=== PATIENT | male | born 1965 | race African-American/Black ===

== ENCOUNTER 2018-04-16 19:01 | Inpatient (IN) | payer SELFPAY ==
[2018-04-16 19:08] VITALS: BMI 38.0
--- NOTE | 2018-04-16 21:27 | HP ---
CIWA Score - CIWA Score Nausea/Vomitin-Int. Nausea w/Dry Heave Anxiety: 3 Agitation: 1-Slight > Activity Paroxysmal Sweats: 3 Orientation: 1-Uncertain about Date (no distress) Tacttile Disturbances: 0-None Admission ROS S - HPI Chief Complaint: " I was clean for 15 years, I relapsed last week after my father , I feel funny. " Allergies/Adverse Reactions: Allergies Allergy/AdvReac Type Severity Reaction Status Date / Time No Known Allergies Allergy Verified 04/16/18 21:37 History of Present Illness: 52 yo male with hx of nicotine, alcohol, marijuana and cocaine dependence is here seeking detox for the first time. PMHX: HTN ( non- adherence with meds), depression. Denies suicidal / homicidal ideation or hx of suicide attempts. Denies hx of seizures or blackouts. Longest period of sobriety 15 years. Exam Limitations: No Limitations - Ebola screening Have you traveled outside of the country in the last 21 days: No Have you had contact with anyone from an Ebola affected area: No Have you been sick,other than usual withdrawal symptoms: No Do you have a fever: No - Review of Systems Constitutional: Chills, Diaphoresis, Changes in sleep EENT: reports: No Symptoms Reported Respiratory: reports: No Symptoms reported Cardiac: reports: No Symptoms Reported GI: reports: Constipated (last BM x 3 days), Nausea, Poor Fluid Intake, Vomiting : reports: No Symptoms Reported Musculoskeletal: reports: No Symptoms Reported Integumentary: reports: No Symptoms Reported Neuro: reports: No Symptoms reported Endocrine: reports: Increased Thirst Hematology: reports: No Symptoms Reported Psychiatric: reports: Orientated x3, Depressed Other Systems: Reviewed and Negative Patient History - Patient Medical History Hx Anemia: No Hx Asthma: No Hx Chronic Obstructive Pulmonary Disease (COPD): No Hx Cancer: No Hx Cardiac Disorders: No Hx Congestive Heart Failure: No Hx Hypertension: Yes (non- adherence with meds ) Hx Hypercholesterolemia: No Hx Pacemaker: No HX Cerebrovascular Accident: No Hx Seizures: No Hx Dementia: No Hx Diabetes: No Hx Gastrointestinal Disorders: Yes (GERD ) Hx Liver Disease: No Hx Genitourinary Disorders: No Hx Sexually Transmitted Disorders: Yes (gonorrhea and treated ) Hx Renal Disease (ESRD): No Hx Thyroid Disease: No Hx Human Immunodeficiency Virus (HIV): No (last tested two wee) Hx Hepatitis C: No Hx Depression: Yes Hx Suicide Attempt: No Hx Bipolar Disorder: No Hx Schizophrenia: No - Patient Surgical History Past Surgical History: Yes Hx Neurologic Surgery: No Hx Cataract Extraction: No Hx Cardiac Surgery: No Hx Lung Surgery: No Hx Breast Surgery: No Hx Breast Biopsy: No Hx Abdominal Surgery: Yes (hernia repair x 2017) Hx Appendectomy: No Hx Cholecystectomy: No Hx Genitourinary Surgery: No Hx Orthopedic Surgery: No Hx Hysterectomy: No - PPD History Previous Implant?: No Documented Results: Negative w/o proof Implanted On Prior R Admission?: No PPD to be Administered?: Yes - Smoking Cessation Smoking history: Current every day smoker Have you smoked in the past 12 months: Yes Aproximately how many cigarettes per day: 10 Hx Chewing Tobacco Use: No Initiated information on smoking cessation: Yes 'Breaking Loose' booklet given: 04/16/18 - Substance & Tx. History Hx Alcohol Use: Yes Hx Substance Use: Yes Substance Use Type: Alcohol, Cocaine, Marijuana Hx Substance Use Treatment: No - Substances Abused Alcohol Route: Oral Frequency: Daily Amount used: 10 x 40 oz Age of first use: 20 Date of Last Use: 04/16/18 Cocaine Route: Inhalation Frequency: Daily Amount used: 1 gram Age of first use: 52 Date of Last Use: 04/16/18 Marijuana/Hashish Route: Smoking Frequency: Daily Amount used: 1 blunt Age of first use: 52 Date of Last Use: 04/16/18 Family Disease History - Family Disease History Family Disease History: Other: Father (, MVA ), Mother (, Cancer ) Admission Physical Exam S - Vital Signs Vital Signs: Vital Signs - 24 hr 04/16/18 19:06 Temperature 97.9 F Pulse Rate 99 H Respiratory 18 Rate Blood Pressure 160/100 - Physical General Appearance: Yes: Disheveled, Mild Distress, Obese, Sweating, Anxious HEENTM: Yes: EOMI, Hearing grossly Normal, Normal ENT Inspection, Normocephalic , Normal Voice, JASE, Pharynx Normal, Tm's normal Respiratory: Yes: Within Normal Limits Neck: Yes: No masses,lesions,Nodules, Trachea in good position Breast: Yes: Breast Exam Deferred Cardiology: Yes: Regular Rhythm, Regular Rate Abdominal: Yes: Normal Bowel Sounds, Non Tender, Soft, Protuberent Genitourinary: Yes: Within Normal Limits Back: Yes: Normal Inspection Musculoskeletal: Yes: full range of Motion, Gait Steady, Pelvis Stable Extremities: Yes: Normal Capillary Refill, Normal Inspection, Normal Range of Motion, Non-Tender 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, Fully Oriented, Alert, Motor Strength 5/5, Depressed Affect Integumentary: Yes: Normal Color, Warm, Diaphoresis Lymphatic: Yes: Within Normal Limits - Diagnostic (1) Essential hypertension Current Visit: Yes Status: Chronic (2) Elevated blood pressure reading in office with diagnosis of hypertension Current Visit: Yes Status: Acute (3) Alcohol dependence with withdrawal Current Visit: Yes Status: Acute Qualifiers: Complication of substance-induced condition: uncomplicated Qualified Code(s ): F10.230 - Alcohol dependence with withdrawal, uncomplicated (4) Cocaine abuse Current Visit: Yes Status: Acute (5) Marijuana abuse Current Visit: Yes Status: Acute (6) Obesity (BMI 30-39.9) Current Visit: Yes Status: Chronic Comment: BMI 38.0 Cleared for Admission [facility] - Detox or Rehab [facility] Level of Care: Medically Managed Detox Regimen/Protocol: Librium [facility] Breath Alcohol Content Breath Alcohol Content: 0 Urine Drug Screen - Results Drug Screen Negative: No Urine Drug Screen Results: THC-Marijuana, BRIAN-Cocaine
[2018-04-16] MEDS ORDERED: guaiFENesin/D-METHORPHAN HB 10 ML UNIT-DOSE CUPS PO PRN (21:48)
[2018-04-16] MEDS ORDERED: MENTHOL/PHENOL 1 EACH UD MM PRN (21:48)
[2018-04-16] MEDS ORDERED: chlordiazePOXIDE HCL 25 MG CAPSULE PO PRN (21:48)
[2018-04-16] MEDS ORDERED: MAG HYDROX/AL HYDROX/SIMETH 30 ML UNIT-DOSE CUP PO PRN (21:48)
[2018-04-16] MEDS ORDERED: MAGNESIUM CITRATE 300 ML BOTTLE PO PRN (21:48)
[2018-04-16] MEDS ORDERED: ACETAMINOPHEN 325 MG TABLET (FP) PO PRN (21:48)
[2018-04-16] MEDS ORDERED: LOPERAMIDE HCL 2 MG CAPSULE PO PRN (21:48)
[2018-04-16] MEDS ORDERED: P-EPHED 60MG/TRIPROLIDI 2.5MG TABLET PO PRN (21:48)
[2018-04-16] MEDS ORDERED: hydrOXYzine PAMOATE 50 MG CAPSULE (FP) PO PRN (21:48)
[2018-04-16] MEDS ORDERED: NICOTINE POLACRILEX 2 MG GUM BC PRN (21:48)
[2018-04-16] MEDS ORDERED: IBUPROFEN 400 MG TABLET (FP) PO PRN (21:48)
[2018-04-16] MEDS ORDERED: MAGNESIUM HYDROX 2400MG/30ML ORAL SUSPENSION 30 ML CUP PO PRN (21:48)
[2018-04-16] MEDS ORDERED: MELATONIN 5 MG TABLETS PO PRN (22:00)
--- NOTE | 2018-04-16 22:44 | PN ---
[facility] CIWA - CIWA Score Nausea/Vomitin Muscle Tremors: 2 Anxiety: 3 Agitation: 3 Paroxysmal Sweats: 2 Orientation: 1-Uncertain about Date Tacttile Disturbances: 0-None Auditory Disturbances: 0-None Visual Disturbances: 0-None Headache: 2-Mild CIWA-Ar Total Score: 16
[2018-04-16] MEDS: THIAMINE HCL 100 MG TABLET (FP) PO SCH (23:51)
[2018-04-16] MEDS: amLODIPine BESYLATE 10 MG TABLET (FP) PO SCH (23:51)
[2018-04-16] MEDS: chlordiazePOXIDE HCL 25 MG CAPSULE PO SCH (23:51)
[2018-04-17] MEDS: chlordiazePOXIDE HCL 25 MG CAPSULE PO SCH ×4 (06:36→22:38)
[2018-04-17] MEDS ORDERED: cloNIDine HCL 0.1 MG TABLET PO ONE (06:45)
--- NOTE | 2018-04-17 09:30 | CONSULT ---
[facility] Psychiatric Consult - Data Date of interview: 04/17/18 Admission source: [facility] Identifying data: Patient is a 52 year old male, father of three, domiciled and currently employed. This is patient's first admission to detox at [facility]. Patient admitted to for alcohol, marijuana, and cocaine dependence. Substance Abuse History: Smoking Cessation. Smoking history: Current every day smoker. Have you smoked in the past 12 months: Yes. Aproximately how many cigarettes per day: 10. Hx Chewing Tobacco Use: No. Initiated information on smoking cessation: Yes. 'Breaking Loose' booklet given: 04/16/18. - Substance & Tx. History. Hx Alcohol Use: Yes. Hx Substance Use: Yes. Substance Use Type : Alcohol, Cocaine, Marijuana. Hx Substance Use Treatment: No. - Substances Abused. Alcohol. Route: Oral. Frequency: Daily. Amount used: 10 x 40 oz. Age of first use: 20. Date of Last Use: 04/16/18. Cocaine. Route: Inhalation. Frequency: Daily. Amount used: 1 gram. Age of first use: 52. Date of Last Use: 04/16/18. Marijuana/Hashish. Route: Smoking. Frequency: Daily. Amount used: 1 blunt. Age of first use: 52. Date of Last Use: 04/16/18 Medical History: hernia repair x 2017, hypertension, GERD Psychiatric History: Patient denies h/o psychiatric hospitalization, outpatient care, and suicide attempt. Pt. reports poor sleep. Physical/Sexual Abuse/Trauma History: Denies. Mental Status Exam - Mental Status Exam Alert and Oriented to: Time, Place, Person Cognitive Function: Good Patient Appearance: Well Groomed Mood: Euthymic Affect: Mood Congruent Patient Behavior: Appropriate, Cooperative Speech Pattern: Appropriate Voice Loudness: Normal Thought Process: Intact, Goal Oriented Thought Disorder: Present Hallucinations: Denies Suicidal Ideation: Denies Homicidal Ideation: Denies Insight/Judgement: Poor Sleep: Poorly Appetite: Fair Muscle strength/Tone: Normal Gait/Station: Normal Psychiatric Findings - Problem List ([place] 1, 2,3) (1) Cocaine dependence Current Visit: Yes Status: Acute (2) Alcohol dependence with withdrawal Current Visit: Yes Status: Acute Qualifiers: Complication of substance-induced condition: uncomplicated Qualified Code(s ): F10.230 - Alcohol dependence with withdrawal, uncomplicated (3) Essential hypertension Current Visit: Yes Status: Chronic (4) Obesity (BMI 30-39.9) Current Visit: Yes Status: Chronic Comment: BMI 38.0 (5) Cannabis dependence Current Visit: Yes Status: Acute (6) Insomnia Current Visit: Yes Status: Acute - Initial Treatment Plan Initial Treatment Plan: Psychoeducation provided. Detoxification in progress. Melatonin 5mg ordered by PURCHASING INTERN. Pt encouraged to accept melatonin 5mg for insomnia.
[2018-04-17 10:05] LABS: HEMATOCRIT 43.6 % (35.4-49); HEMOGLOBIN 14.3 GM/dL (11.7-16.9); MCH 29.7 pg (25.7-33.7); MCHC 32.8 g/dl (32.0-35.9); MEAN CELL VOLUME 90.5 fl (80-96); MEAN PLT VOLUME 8.1 fl (7.5-11.1); PLATELET COUNT 275 K/MM3 (134-434); RBC 4.82 M/mm3 (4.00-5.60); RDW 13.3 % (11.9-15.9); WHITE BLOOD COUNT 7.4 K/mm3 (4.0-10.0)
[2018-04-17 10:29] LABS: ALBUMIN 3.3 g/dl (3.4-5.0); ALK PHOS 85 U/L (45-117); ANION GAP 8 (8-16); BILIRUBIN,TOTAL 0.3 mg/dL (0.2-1.0); BLOOD UREA NITROGEN 16 mg/dL (7-18); CALCIUM 8.5 mg/dL (8.5-10.1); CHLORIDE 107 mmol/L (98-107); CO2 28 mmol/L (21-32); CREATININE 1.2 mg/dL (0.7-1.3); GLUCOSE,RANDOM 158 mg/dL (74-106); SGOT/AST 16 U/L (15-37); SGPT/ALT 27 U/L (12-78); SODIUM 143 mmol/L (136-145); TOT PROT 6.7 g/dl (6.4-8.2)
--- NOTE | 2018-04-17 10:36 | PN ---
[facility] CIWA - CIWA Score Nausea/Vomitin-No Nausea/No Vomiting Muscle Tremors: 4-Moderate,w/Arms Extend Anxiety: 4-Mod. Anxious/Guarded Agitation: 4-Moderately Restless Paroxysmal Sweats: 1-Minimal Palms Moist Orientation: 0-Oriented Tacttile Disturbances: 0-None Auditory Disturbances: 0-None Visual Disturbances: 0-None Headache: 0-None Present CIWA-Ar Total Score: 13 S Progress Note (SOAP) Subjective: ANXIETY,TREMORS,SWEATS.INTERMITTENT Objective: 04/17/18 10:36 Vital Signs 04/17/18 04/17/18 04/17/18 03:25 06:14 09:34 Temperature 97.6 F 97.3 F L Pulse Rate 18 L 78 Respiratory 20 71 H 18 Rate Blood Pressure 153/100 151/89 Laboratory Tests 04/17/18 07:00 WBC 7.4 RBC 4.82 Hgb 14.3 Hct 43.6 MCV 90.5 MCH 29.7 MCHC 32.8 RDW 13.3 Plt Count 275 MPV 8.1 OTHER LABS PENDING Assessment: 04/17/18 10:36 WITHDRAWAL SX Plan: CONTINUE DETOX ON NORVASC 10 MG PO DAILY
[2018-04-17] MEDS: PRENATAL VITAMINS W/ FOLIC ACID TABLET (FP) PO SCH (10:40)
[2018-04-17] MEDS: NICOTINE 14 MG/24 HOURS TOPICAL PATCH TD SCH (10:40)
[2018-04-17] MEDS: amLODIPine BESYLATE 10 MG TABLET (FP) PO SCH (10:41)
[2018-04-17 10:51] LABS: URINE APPEARANCE CLEAR; URINE BILIRUBIN NEGATIVE (<2.0 mg/dL); URINE COLOR STRAW; URINE GLUCOSE (UA) NEGATIVE (NEGATIVE); URINE KETONE NEGATIVE (NEGATIVE); URINE NITRITE NEGATIVE (NEGATIVE); URINE PROTEIN NEGATIVE (NEGATIVE); URINE UROBILINOGEN NEGATIVE mg/dL (0.2-1.0)
[2018-04-17 11:06] LABS: URINE LEUK ESTERASE 1+ (NEGATIVE)
[2018-04-17 11:42] LABS: EPI CELLS RARE /HPF (FEW); URINE MUCUS RARE
--- NOTE | 2018-04-17 12:10 | EKG ---
Test Reason : Blood Pressure : / mmHG Vent. Rate : 084 BPM Atrial Rate : 084 BPM P-R Int : 186 ms QRS Dur : 084 ms QT Int : 362 ms P-R-T Axes : 052 018 046 degrees QTc Int : 427 ms NORMAL SINUS RHYTHM POSSIBLE LEFT ATRIAL ENLARGEMENT NONSPECIFIC T WAVE ABNORMALITY ABNORMAL ECG NO PREVIOUS ECGS AVAILABLE Confirmed by WILL ROSAS MD ([id number]) on 04/17/2018 12:10:41 PM Referred By: Confirmed By:WILL ROSAS MD
--- NOTE | 2018-04-17 12:10 | EKG ---
Test Reason : Blood Pressure : / mmHG Vent. Rate : 064 BPM Atrial Rate : 064 BPM P-R Int : 162 ms QRS Dur : 090 ms QT Int : 496 ms P-R-T Axes : -04 055 021 degrees QTc Int : 511 ms NORMAL SINUS RHYTHM PROLONGED QT ABNORMAL ECG WHEN COMPARED WITH ECG OF 16-APR-2018 23:31, T WAVE INVERSION NOW EVIDENT IN ANTERIOR LEADS NONSPECIFIC T WAVE ABNORMALITY NO LONGER EVIDENT IN LATERAL LEADS QT HAS LENGTHENED Confirmed by WILL ROSAS MD ([id number]) on 04/17/2018 12:10:32 PM Referred By: Confirmed By:WILL ROSAS MD
[2018-04-17] MEDS: THIAMINE HCL 100 MG TABLET (FP) PO SCH (22:38)
[2018-04-17] MEDS: CLOTRIMAZOLE 1%TOPICAL SOLUTION 30 ML BOTTLE TP SCH (22:38)
[2018-04-18] MEDS: chlordiazePOXIDE HCL 25 MG CAPSULE PO SCH ×3 (06:57→17:59)
[2018-04-18] MEDS: PRENATAL VITAMINS W/ FOLIC ACID TABLET (FP) PO SCH (10:36)
[2018-04-18] MEDS: amLODIPine BESYLATE 10 MG TABLET (FP) PO SCH (10:36)
[2018-04-18] MEDS: CLOTRIMAZOLE 1%TOPICAL SOLUTION 30 ML BOTTLE TP SCH ×2 (10:36→22:27)
[2018-04-18] MEDS: NICOTINE 14 MG/24 HOURS TOPICAL PATCH TD SCH (10:36)
[2018-04-18] MEDS ORDERED: CHLORHEXIDINE GLUCONATE 0.12% 15ML CUP MM ONE (12:08)
[2018-04-18] MEDS ORDERED: predniSONE 20 MG TABLET (UD) PO ONE (12:08)
--- NOTE | 2018-04-18 12:28 | PN ---
[facility] Progress Note (SOAP) Subjective: PT C/O THROAT PAIN AND SWOLLEN TONSILS. REPORTS HX SIMILAR SX IN THE PAST. ANXIETY,SWEATS. Objective: 04/18/18 12:24 Vital Signs 04/18/18 04/18/18 06:28 09:49 Temperature 97.2 F L 97.2 F L Pulse Rate 73 76 Respiratory 18 16 Rate Blood Pressure 134/90 133/82 Laboratory Tests 04/17/18 04/17/18 04/17/18 07:00 07:00 07:00 WBC 7.4 RBC 4.82 Hgb 14.3 Hct 43.6 MCV 90.5 MCH 29.7 MCHC 32.8 RDW 13.3 Plt Count 275 MPV 8.1 Sodium 143 Potassium 4.0 Chloride 107 Carbon Dioxide 28 Anion Gap 8 BUN 16 Creatinine 1.2 Creat Clearance w eGFR > 60 Random Glucose 158 H Calcium 8.5 Total Bilirubin 0.3 AST 16 ALT 27 Alkaline Phosphatase 85 Total Protein 6.7 Albumin 3.3 L Urine Color Urine Appearance Urine pH Ur Specific [place] Urine Protein Urine Glucose (UA) Urine Ketones Urine Blood Urine Nitrite Urine Bilirubin Urine Urobilinogen Ur Leukocyte Esterase Urine WBC (Auto) Urine RBC (Auto) Ur Epithelial Cells Urine Mucus RPR Titer Nonreactive 04/17/18 08:30 WBC RBC Hgb Hct MCV MCH MCHC RDW Plt Count MPV Sodium Potassium Chloride Carbon Dioxide Anion Gap BUN Creatinine Creat Clearance w eGFR Random Glucose Calcium Total Bilirubin AST ALT Alkaline Phosphatase Total Protein Albumin Urine Color Straw Urine Appearance Clear Urine pH 6.0 Ur Specific [place] 1.013 Urine Protein Negative Urine Glucose (UA) Negative Urine Ketones Negative Urine Blood 1+ H Urine Nitrite Negative Urine Bilirubin Negative Urine Urobilinogen Negative Ur Leukocyte Esterase 1+ H Urine WBC (Auto) 8 Urine RBC (Auto) 2 Ur Epithelial Cells Rare Urine Mucus Rare RPR Titer THROAT:ENLARGED TONSILS 2+ TO 3+. NO EXUDATES. Assessment: 04/18/18 12:24 WITHDRAWAL SX R/O STREP THROAT INFECTION Plan: CONTINUE DETOX PERIDEX WASH BID X 3 DAYS PREDNISONE 40 MG PO ONCE THROAT CX R/O STREP THROAT INFECTION. WARM SALT THROAT GARGLES MOTRIN PRN
[2018-04-18] MEDS ORDERED: CHLORHEXIDINE GLUCONATE 0.12% 15ML CUP MM SCH (22:00)
[2018-04-18] MEDS: chlordiazePOXIDE 5 MG CAPSULE PO SCH (22:28)
[2018-04-18] MEDS: THIAMINE HCL 100 MG TABLET (FP) PO SCH (22:28)
[2018-04-19 06:17] VITALS: BP 138/97; PULSE 75; TEMP 97.2
[2018-04-19] MEDS: chlordiazePOXIDE 5 MG CAPSULE PO SCH (06:21)
--- NOTE | 2018-04-19 16:28 | DS ---
[facility] Detox Discharge Summary Admission Date: 04/16/18 Discharge Date: 04/19/18 - History Present History: Alcohol Dependence, Cannabis Dependence, Cocaine Dependence Additional Comments: PATIENT HAS PERSONAL ISSUE TO ATTEND TO AND DOES NOT WISH TO STAY TO COMPLETE DETOX REGIMEN. RISKS OF LEAVING DETOX UNIT AGAINST MEDICAL ADVICE AND PRIOR TO COMPLETION OF DETOX REGIMEN EXPLAINED TO PATIENT. PATIENT ADVISED TO GO IMMEDIATELY TO NEAREST ER SHOULD ANY INTOLERABLE DETOX SYMPTOMS DEVELOP AT ANY TIME. PATIENT LEFT DETOX UNIT IN STABLE MEDICAL CONDITION. Pertinent Past History: Depression, G.E.R.D., HTN, Insomnia. - Physical Exam Results Vital Signs: Vital Signs Temperature 97.2 F L 04/19/18 06:16 Pulse Rate 75 04/19/18 06:16 Respiratory Rate 18 04/19/18 06:16 Blood Pressure 138/97 04/19/18 06:16 O2 Sat by Pulse Oximetry (%) Pertinent Admission Physical Exam Findings: WITHDRAWAL SYMPTOMS. Laboratory Tests 04/17/18 04/17/18 04/17/18 07:00 07:00 07:00 WBC 7.4 RBC 4.82 Hgb 14.3 Hct 43.6 MCV 90.5 MCH 29.7 MCHC 32.8 RDW 13.3 Plt Count 275 MPV 8.1 Sodium 143 Potassium 4.0 Chloride 107 Carbon Dioxide 28 Anion Gap 8 BUN 16 Creatinine 1.2 Creat Clearance w eGFR > 60 POC Glucometer Random Glucose 158 H Calcium 8.5 Total Bilirubin 0.3 AST 16 ALT 27 Alkaline Phosphatase 85 Total Protein 6.7 Albumin 3.3 L Urine Color Urine Appearance Urine pH Ur Specific [place] Urine Protein Urine Glucose (UA) Urine Ketones Urine Blood Urine Nitrite Urine Bilirubin Urine Urobilinogen Ur Leukocyte Esterase Urine WBC (Auto) Urine RBC (Auto) Ur Epithelial Cells Urine Mucus RPR Titer Nonreactive 04/17/18 04/18/18 04/19/18 08:30 16:35 06:16 WBC RBC Hgb Hct MCV MCH MCHC RDW Plt Count MPV Sodium Potassium Chloride Carbon Dioxide Anion Gap BUN Creatinine Creat Clearance w eGFR POC Glucometer 213 124 Random Glucose Calcium Total Bilirubin AST ALT Alkaline Phosphatase Total Protein Albumin Urine Color Straw Urine Appearance Clear Urine pH 6.0 Ur Specific [place] 1.013 Urine Protein Negative Urine Glucose (UA) Negative Urine Ketones Negative Urine Blood 1+ H Urine Nitrite Negative Urine Bilirubin Negative Urine Urobilinogen Negative Ur Leukocyte Esterase 1+ H Urine WBC (Auto) 8 Urine RBC (Auto) 2 Ur Epithelial Cells Rare Urine Mucus Rare RPR Titer LABS NOTED. - Treatment Hospital Course: Detoxed Safely - Medication Discharge Medications: Ambulatory Orders Amlodipine Besylate 10 mg PO DAILY 04/16/18 - Diagnosis (1) Alcohol dependence with withdrawal Status: Acute Qualifiers: Complication of substance-induced condition: uncomplicated Qualified Code(s ): F10.230 - Alcohol dependence with withdrawal, uncomplicated (2) Cannabis dependence Status: Acute (3) Cocaine dependence Status: Acute Qualifiers: Substance use status: uncomplicated Qualified Code(s): F14.20 - Cocaine dependence, uncomplicated (4) Elevated blood pressure reading in office with diagnosis of hypertension Status: Acute (5) Insomnia Status: Acute Qualifiers: Insomnia type: unspecified Qualified Code(s): G47.00 - Insomnia, unspecified (6) Essential hypertension Status: Chronic (7) Obesity (BMI 30-39.9) Status: Chronic - AMA Did Patient Leave Against Medical Advice: Yes (PT. HAD PERSONAL ISSUE AND DID NOT WISH TO REMIAN TO COMPLETE DETOX REGIMEN)
[2018-04-19] MEDS ORDERED: chlordiazePOXIDE HCL 10 MG CAPSULE PO SCH (23:00)
--- NOTE | 2018-04-21 14:49 | PN ---
[facility] Progress Note Note: PT SIGNED OUT AMA ON 04/19/18 BEFORE THROAT CX RESULT WAS AVAILABLE. RECEIVED RESULT TODAY. Microbiology 04/18/18 12:25 Throat Throat Culture - Final Strep Agalactiae Group B DRUG ROOM OPERATOR CALLED PT TODAY AT LISTED PHONE NUMBER IN CHART TO INFORM OF TEST RESULT AND TREATMENT. PT DENIES ANY MEDICATION ALLERGIES. RX FOR AUGMENTIN 875 MG PO BID X 7 DAYS SENT TO [facility]. NORVASC 10 MG PO DAILY #30 PER PT'S REQUEST ALSO SENT TO [facility] FOR PT TO PICKUP FROM PHARMACY.
== END 2018-04-19 08:40 | disposition left against medical advice (07) | DRG 770 ==
LOC: YASAS 19:01 → Y3N 22:59
PROVIDERS: ADMIT Surgery; ATTEND Surgery
PROC: HZ2ZZZZ Detoxification Services for Substance Abuse Treatment (ICD-10-PCS; principal; 2018-04-16)
DX: F10.230 Alcohol dependence with withdrawal, uncomplicated (principal); F14.20 Cocaine dependence, uncomplicated; F12.20 Cannabis dependence, uncomplicated; I10 Essential (primary) hypertension; K21.9 Gastro-esophageal reflux disease without esophagitis; G47.00 Insomnia, unspecified; E66.9 Obesity, unspecified; Z68.38 Body mass index [BMI] 38.0-38.9, adult; Z86.19 Personal history of other infectious and parasitic diseases
CPT/HCPCS: 36415; 80053; 81003; 81015; 82962; 85027; 86593; 87070; 87077; 93005; 93010; J0735